=== PATIENT | female | born 1960 | race African-American/Black ===

== ENCOUNTER 2019-08-23 16:33 | Inpatient (IN) | payer OTHER ==
[~2019-08-23] VITALS: Ht 165.1 cm; Wt 78.5 kg
[2019-08-23 16:35] VITALS: BP 115/74
[2019-08-23] MEDS ORDERED: TRAMADOL 50 MG50 MG PO ×2 (16:39→19:59)
[2019-08-23] MEDS ORDERED: KLONOPIN0.5 MG PO (16:39)
[2019-08-23 17:08] LABS: ABSOLUTE NEUTROPHILS 5.1 thou/uL (1.4-8.2); BASOPHILS 0.5 % (0.0-2.0); EOSINOPHILS 1.2 % (0.0-3.0); HEMATOCRIT 40.1 % (37.0-47.0); LYMPHOCYTES 24.6 % (24.0-44.0); MCH 32.9 pg (26.0-34.0); MCHC 32.4 g/dL (28.0-37.0); MCV 101.6 fL (80.0-100.0); MONOCYTES 5.2 % (1.0-8.0); PLATELET COUNT 217 thou/uL (150-400); POLYS 68.5 % (36.0-66.0); RBC 3.95 mil/uL (4.20-5.00); RDW 14.3 % (10.5-14.5); WBC 7.5 thou/uL (4.0-11.0)
[2019-08-23 17:13] LABS: ANION GAP 2 mmol/L (7-16); BUN 10 mg/dL (7-18); CALCIUM 8.8 mg/dL (8.5-10.1); CHLORIDE 105 mmol/L (98-107); CO2 29 mmol/L (21-32); CREATININE 0.7 mg/dL (0.6-1.0); GLUCOSE 91 mg/dL (74-106); POTASSIUM 4.7 mmol/L (3.5-5.1); SODIUM 136 mmol/L (136-145)
[2019-08-23 17:23] LABS: ALBUMIN 3.3 g/dL (3.4-5.0); LIPASE 56 U/L (73-393); SGOT 31 U/L (15-37); SGPT 28 U/L (30-65); TOTAL BILIRUBIN 0.3 mg/dL (<0.1-1.0); TOTAL PROTEIN 6.8 g/dL (6.4-8.2); TROPONIN-I <0.06 ng/mL (<0.06)
[2019-08-23 17:43] LABS: URINE BILIRUBIN NEGATIVE (Negative); URINE BLOOD NEGATIVE (Negative); URINE CLARITY CLEAR; URINE COLOR YELLOW; URINE GLUCOSE-RANDOM* NEGATIVE (Negative); URINE KETONES NEGATIVE (Negative); URINE LEUKOCYTES-REFLEX NEGATIVE (Negative); URINE NITRITE-REFLEX NEGATIVE (Negative); URINE PROTEIN (DIPSTICK) NEGATIVE (Negative); URINE SPECIFIC GRAVITY 1.025 (1.005-1.035); URINE UROBILINOGEN 0.2 E.U./dl (0.2-1.0)
[2019-08-23 17:58] LABS: AMP/METHAMP Negative (Negative); BARBITURATES POSITIVE (Negative); METHADONE Negative (Negative); OPIATES Negative (Negative); PCP Negative (Negative)
[2019-08-23 18:12] LABS: BENZODIAZEPINES POSITIVE (Negative); COCAINE Negative (Negative)
[2019-08-23 18:26] LABS: MAGNESIUM 2.2 mg/dL (1.8-2.4)
[2019-08-23] MEDS ORDERED: CALCIUM CARBON500 MG PO (19:32)
[2019-08-23] MEDS ORDERED: PROAIR HFA8.5 GM INH (19:32)
[2019-08-23] MEDS ORDERED: LIPITOR80 MG PO (19:33)
[2019-08-23] MEDS ORDERED: PLAVIX 75 MG TA75 MG PO (19:34)
[2019-08-23] MEDS ORDERED: OYSTER SHELL 51 EAC1 PO (19:34)
[2019-08-23] MEDS ORDERED: VOLTAREN GEL 1100 GM TOP (19:34)
[2019-08-23] MEDS ORDERED: ZETIA10 MG PO (19:35)
[2019-08-23] MEDS ORDERED: EPIPEN0.3 MG/0.1 IM (19:35)
[2019-08-23] MEDS ORDERED: FLONASE 0.05%50 MCG NASAL (19:35)
[2019-08-23] MEDS ORDERED: NEURONTIN300 MG PO (19:36)
[2019-08-23] MEDS ORDERED: HYDROCORTISONE120 M1 TOP (19:37)
[2019-08-23] MEDS ORDERED: LATANOPROST 0.2.5 ML OPHTHALMIC (19:38)
[2019-08-23] MEDS ORDERED: EVZIO2 MG/0.4 M IV PUSH (19:46)
[2019-08-23] MEDS ORDERED: CORTISPORIN OTI10 ML OTIC (19:47)
[2019-08-23] MEDS ORDERED: NORTRIPTYLINE H10 M1 PO (19:49)
[2019-08-23] MEDS ORDERED: ZOFRAN8 MG PO (19:49)
[2019-08-23] MEDS ORDERED: NITROSTAT0.4 M1 SUBLING (19:49)
[2019-08-23] MEDS ORDERED: RAYOS5 MG PO (19:50)
[2019-08-23] MEDS ORDERED: MIRALAX119 GM PO (19:50)
[2019-08-23] MEDS ORDERED: PROTONIX40 M2 PO (19:50)
[2019-08-23] MEDS ORDERED: MYSOLINE50 MG PO (19:57)
[2019-08-23] MEDS ORDERED: PROPRANOLOL 1010 M1 PO (19:58)
[2019-08-23] MEDS ORDERED: SENEXON-S 50-81 EACH PO (19:58)
[2019-08-23] MEDS ORDERED: SULFACETAMIDE 115 M1 OTIC (19:59)
[2019-08-23] MEDS ORDERED: VENLAFAXINE HCL75 M1 PO (20:00)
[2019-08-23] MEDS ORDERED: VALACYCLOVIR1000 MG PO (20:00)
[2019-08-23 20:28] VITALS: BP 111/68
[2019-08-23 20:50] VITALS: BP 111/68
[2019-08-23 21:14] VITALS: BP 122/70
[2019-08-24] VITALS (7 sets, daily range): BP systolic 107–135; BP diastolic 64–82
--- NOTE | 2019-08-24 04:45 | NUR ---
PT ARRIVED ON THE UNIT AROUND 2109, PT ALERT AND ORIENTED TO PERSON, AN HR LATER PT IS MORE ORIENTED AND CAN ANSWER ADMISSION QUESTIONS, VITALS ARE STABLE SR ON THE MONITOR, MAIN CONCERN IS THE NEW ONSET OF THE RIGHT SIDED WEAKNESS, SEIZURE PRECAUTIONS MAINTAINED, RESTED WELL THROUGHOUT THE NIGHT, WILL CONTINUE TO MONITOR
[2019-08-24 12:22] LABS: CHOLESTEROL 254 mg/dL (<200); HDL CHOLESTEROL 109 mg/dL (>40); LDL CHOLESTEROL 133 mg/dL (<100); TC:HDL 2.3 Ratio (Not establshd); TRIGLYCERIDE 64 mg/dL (<150); VLDL 13 mg/dL (<40)
--- NOTE | 2019-08-24 13:06 | EKG ---
[place] [address] [facility] [place] [address] ELECTROCARDIOGRAM REPORT Name: SHAHEEN RODAS Room #: 216-P ADM IN M.R.#: [id number] Admission: 08/23/19 Attend Phys: Woodrow Izaguirre Discharge: Date of : 60 Report #: [id number] THIS REPORT FOR: //name// [facility] ED Test Date: 2019-08-23 Test Time: 17:09:43 Pat Name: SHAHEEN RODAS Department: Room: 216 Gender: F Chief Of Production: shelton : 1960 Requested By: Osiris Alex Order Number: [id number] MD: Javi Ashley Measurements Intervals [place] Rate: 82 P: 54 [place]: 125 QRS: -14 QRSD: 86 T: 115 QT: 388 QTc: 453 Interpretive Statements Sinus rhythm Abnormal R-wave progression, early transition Left ventricular hypertrophy Nonspecific T abnrm, anterolateral leads No previous ECG available for comparison Electronically Signed On 08-24-2019 13:05:44 MANAGER RETENTION by Javi Ashley [email or web address] <ELECTRONICALLY SIGNED> By: Javi Ashley MD, [facility] 08/24/19 1305 08 08 Javi Ashley MD, FAC /EPI
--- NOTE | 2019-08-24 14:56 | NUR ---
Case opened to follow for dc planning. Carbon Setter visited with the pt at bedside. Her voice is weak but she is able to answer questions and sit up eob independently. She reports that she is disabled and lives in an apt. Her dtr stay with her. She was recieving home health services through [facility] prior to admission and would like to use them again at al. She uses a cane for gait but has a rwalker if needed. She has three steps to enter her apt. She has complex medical history including lupus,s/p cabg,chf,stroke and was admitted with AMS and seizure. She normally goes to [facility] for all of her care. PT/OT have been ordered. Call placed to [facility] to advise of her admission. They can accept her for readmission at al. Their oncall nurse will need to be notified and dc summary, instructions, h/p, and facesheet faxed to them. [facility] HH: [phone], fax [phone]
--- NOTE | 2019-08-24 18:09 | NUR ---
ASSUMED CARE 0700, ALERT X4, ESSENTIAL TREMMORS, NSR ON TELE. LARGE BM TODAY, ASSIST X1 TO COMMODE, ENSURE WITH MEALS, NAUSEA AND VOMITING X1, NOTIFIED PHYSICAIN NO NEW ORDERS AT THIS TIME. SEIZURE AND FALL PRECAUTIONS IN PLACE. CALL LIGHT IN REACH.
[2019-08-25 00:06] LABS: GLYCOHEMOGLOBIN (HGB A1C) 5.3 % (4.8-5.6)
[2019-08-25 04:18] VITALS: BP 121/71
--- NOTE | 2019-08-25 05:25 | NUR ---
ASSUMED CARE AT 1900. PT C/O ABD PAIN AFTER EATING DINNER; STATED SHE TAKES TRAMDOL WITH HER MEALS. OBTAINED ORDER FOR TRAMADOL, BUT PT DID NOT REQUEST ANY PAIN MEDICINE LATER. ABOUT 2300, PT C/O NAUSEA AND WAS GIVEN ZOFRAN FOR RELIEF. DENIED SOB. ASSISTED PT TO BS, WAS WEAK/UNSTEADY AND STRUGGLED TO STAND UP STRAIGHT FOR TRANSFER. HAS BEEN SR IN 60-70'S OVERNIGHT. NO OTHER CONCERNS, WILL CONTINUE TO MONITOR.
--- NOTE | 2019-08-25 06:43 | NUR ---
PT CALLED OUT AT 0540 ASKING FOR PAIN MEDS FOR HER EAR/HEAD. WENT IN ROOM AT 0556, WITNESSED PT HAVING SEIZURE-LIKE ACTIVITY: ENTIRE BODY STIFF, NOT RESPONDING TO VERBAL COMMANDS OR TOUCH, EYES CLENCHED CLOSED, MOUTH AND EYES CLENCHED. STARTED TO HAVE SOME DROOL AND GURGLING IN BACK OF THROAT. TURNED PT ON SIDE, SUCTIONED SOME DROOL. CALLED ARTICULATION OFFICER CARMEN, OBTAINED STAT ORDER FOR 2 MG ATIVAN AND GAVE AT 0604; PT CONTINUED WITH SAME SYMPTOMS. CENTRAL OFFICE OPERATOR SUPERVISOR CALLED. PT PLACED ON 2L NC O2. BLOOD SUGAR 97, VS STABLE. BODY RELAXED SLIGHTLY, PT TRIED TO OPEN EYES BUT JUST RAPID FLICKERING AND UNABLE TO SEE PUPILS, VERY SLIGHTLY TRIED TO MANAGER ROUTE NURSE'S HAND WHEN ASKED, BUT STILL VERY STIFF AND TREMORING. NOTIFIED DR. LONDON AT 0615; OBTAINED ORDER FOR EEG THIS AM. PT NOW APPEARS TO BE SLEEPING BUT HAS LIMITED RESPONSE TO STIMULI. WILL CONTINUE TO MONITOR.
[2019-08-25 08:04] VITALS: BP 104/62
--- NOTE | 2019-08-25 08:16 | NUR ---
REC REPORT ON PT, T WENT THROUGH A BOUT OF SEIZURE LIKE ACTIVITY, COULDN'T PEN EYES PER REPORT. ATIVAN GIVEN AND AN [place] CALLED FOR, NO TECH, SO NEUROTECH WAS CALLED AND VML PER NIGHT STAFF. STAFF TECHNOLOGIST CALLING AGAIN. DR. LONDON NOTIFIED AND THIS IS ORDER, AT THIS TIME. PT IS A&0X4, TALKS VERY SOFT SPOKEN, UP W/SBA AND WALKER/GAIT TO BSC. WEAK REFUELING RAMP SUPERVISOR, MODERATE STRENGTH FEET, SEE SEPARATE INTERVENTIONS FOR ASSESESMENTS, CARDIAC MONITORED. PT STATES SHE HAS A PHYSICIAN AT THAT WILL CHECK HER FOR EPILEPSY. PT KNOWS HOW TO USE CALL LIGHT, SPEAKS SLOWLY, CAN AMB USUALLY W/CANE/WALKER AT HOME. VERY WEAK HERE YET MERELY SBA. ON 02 SATTING 100%, TITRATED AND REMOVED, MONITORING. REMINDED HER ON EFFECTIVE DEEP BREATHING AND SHE DOES RETURN DEMO, WEAKLY
[2019-08-25 12:19] LABS: ABSOLUTE NEUTROPHILS 5.2 thou/uL (1.4-8.2); BASOPHILS 0.4 % (0.0-2.0); EOSINOPHILS 1.7 % (0.0-3.0); HEMOGLOBIN 13.6 gm/dL (12.0-15.0); LYMPHOCYTES 16.4 % (24.0-44.0); MCH 32.7 pg (26.0-34.0); MCHC 32.5 g/dL (28.0-37.0); MCV 100.5 fL (80.0-100.0); PLATELET COUNT 215 thou/uL (150-400); POLYS 76.5 % (36.0-66.0); RBC 4.17 mil/uL (4.20-5.00); WBC 6.8 thou/uL (4.0-11.0)
[2019-08-25 12:35] LABS: ALBUMIN 3.3 g/dL (3.4-5.0); CALCIUM 9.2 mg/dL (8.5-10.1); CREATININE 0.7 mg/dL (0.6-1.0); POTASSIUM 3.9 mmol/L (3.5-5.1); TOTAL BILIRUBIN 0.3 mg/dL (<0.1-1.0); TOTAL PROTEIN 6.9 g/dL (6.4-8.2)
[2019-08-25 13:07] VITALS: BP 103/75
[2019-08-25 20:59] VITALS: BP 138/78
--- NOTE | 2019-08-26 04:56 | NUR ---
ASSUMED PT CARE AT 1900. VSS. PT A&OX4. SEIZURE PRECAUTIONS STIL IN PLACE. COMPLAINED OF L SHOULDER PAIN, TRAMADOL GIVEN PER OCT WAS ICE BAG TO APPLY TO THE AFFECTED AREA. PT RESTED WELL ALL NOC. WANTS A SHOWER BEFORE TRANSFERING OUT TODAY. PT IS STABLE, SR ON THE MONITOR, WILL CONTINUE TO MONITOR PER POC.
[2019-08-26 05:00] LABS: CALCIUM 9.4 mg/dL (8.5-10.1); CREATININE 0.7 mg/dL (0.6-1.0); MAGNESIUM 2.2 mg/dL (1.8-2.4); PHOSPHORUS 3.9 mg/dL (2.5-4.9); POTASSIUM 3.8 mmol/L (3.5-5.1)
[2019-08-26 05:07] LABS: ABSOLUTE NEUTROPHILS 7.3 thou/uL (1.4-8.2); BASOPHILS 0.1 % (0.0-2.0); HEMATOCRIT 40.1 % (37.0-47.0); HEMOGLOBIN 13.2 gm/dL (12.0-15.0); MCH 33.1 pg (26.0-34.0); MCV 100.2 fL (80.0-100.0); MONOCYTES 2.2 % (1.0-8.0); PLATELET COUNT 214 thou/uL (150-400); POLYS 85.7 % (36.0-66.0); RDW 13.8 % (10.5-14.5); WBC 8.5 thou/uL (4.0-11.0)
[2019-08-26 05:41] VITALS: BP 146/123
--- NOTE | 2019-08-26 05:42 | NUR ---
PT HAD A SEIZURE ACTIVITY THIS AM AT 0507, WHICH LASTED FOR 23 MINUTES. OTIS MONTSE NOTIFIED, 2MG OF ATIVAN RX AND GIVEN. NEUROLOGIST INFORMED, LUCI ORDERED ADD GIVEN. WILL CONTIUE TO CLOSELY MONITOR
--- NOTE | 2019-08-26 08:07 | NUR ---
ASSUMED CARE OF PT APPROX 0715, REPORT OF SEIZURE IN THE 0500 HOUR, ATIVAN AND KEPPRA GIVEN, PT SAID HELLO AND WENT BACK TO SELEP, COVERED W/BLANKET FROM WARMER AND SHUT OFF LIGHTS AND LET HER KNOW WE'D VISIT MORE LATER. CHICHI FROM CALLED TO ASK FOR DOCUMENTATION PROCESS OF ACCEPTING PT IS NOW BEGINNING. LET CORPORATE PARALEGAL SEE LIST AND TO CALL RADIOLOGY FOR UPLOADING OF ANY IMAGES. SEE SEPARATE INTERVENTIONS FOR INDIVIDUAL ASSESSMENTS. ALSO NOTED >DBP FROM EARLIER SHIFT. WILL CONTINUE TO MONITOR
[2019-08-26 08:30] VITALS: BP 124/66
[2019-08-26 11:19] VITALS: BP 109/65
--- NOTE | 2019-08-26 11:36 | NUR ---
FELLOW NURSE LET ME KNOW [facility] CALLED FOR REPORT ON USE, ETC. I RETURNED CALL AND CHICHI STATED THEY ARE NOT ACCEPTING PT FOR THESE REASONS: SHE CAN COME IN AN OUT PATIENT, THEY CANNOT DO ANYTHING DIFFERENT THAN WHAT WE ARE DOING, AND PHYSICIAN/BED CAPACITY DOESN'T ALLOW IT AT THIS TIME. LET CHARGE AND HOUSE SUPV KNOW WELL PT. CHICHI STATES HE'S BEEN IN COMM W/DR. TAYLOR.
--- NOTE | 2019-08-26 16:19 | NUR ---
placed call for allergic reaction possibly from cortrosyn given earlier. pt itching, red areas on body, last 15 minutes. will await orders.
[2019-08-26 16:50] VITALS: BP 111/68
[2019-08-26 20:07] VITALS: BP 115/62
[2019-08-27 04:02] VITALS: BP 138/73
[2019-08-27 08:00] VITALS: BP 125/79
--- NOTE | 2019-08-27 09:10 | HC ---
[facility] [place] [address] CONSULTATION Name: SHAHEEN RODAS Room #: 216-P [facility] IN M.R.#: [id number] Admission: 08/23/19 Attend Phys: Woodrow Izaguirre Discharge: Date of : 60 Report #: [id number] THIS REPORT FOR: //name// CC: JOSÉ MIGUEL physician/PCP Woodrow Izaguirre DATE OF SERVICE: 08/26/2019 CONSULTING PHYSICIAN: Dr. Nuno. REASON FOR CONSULTATION: Hypoglycemia. HISTORY OF PRESENT ILLNESS: This is a 59-year-old female patient whose medical background is rather complex and is noted for multiple medical issues including longstanding lupus syndrome with chronic steroid therapy since the , seizure activity disorder, chronic severe gastroparesis, requiring the placement of feeding tube in the past, coronary artery disease, status post coronary artery bypass graft in 2005, in addition to a CVA with residual left-sided weakness. The patient presented to the ER on the day of admission following her daughter calling EMS after she had witnessed what appeared to be seizure-like activity. On the arrival of EMS, the patient's blood glucose was reportedly at 70 mg/dL. The patient was brought in and she was initially not very communicative, lethargic, but then that resolved rather significantly. When asked about her glycemic history, the patient notes that she has a vague recollection of being told that she was a prediabetic in the past, but she has never been diagnosed with full blown type 2 diabetes mellitus, she has never received therapy with antidiabetic agents. Also, the patient does not give a specific description of episodic occurrences of hypoglycemia in the past. She certainly has been intermittently dizzy, lightheaded and probably had alterations in consciousness in the setting of her seizure activity as well. The patient has longstanding lupus and is on steroid therapy since 1987. She is currently on a chronic dose of prednisone 5 mg daily. REVIEW OF SYSTEMS: CONSTITUTIONAL: Fatigue, tiredness, no fever or chills, has had a slight weight loss. HEENT: Negative for sinus pain, sinus pressure, ear drainage. PULMONARY: Occasional shortness of breath and cough. No hemoptysis. CARDIAC: Noted for lightheadedness, dizziness, possible syncope, occasional intermittent chest pain, palpitations, dyspnea on exertion. GASTROINTESTINAL: Severe baseline gastroparesis, has had to use a feeding tube in the past, but this has been removed months ago. She has frequent issues with [facility] [address] [place] [address] CONSULTATION Name: SHAHEEN RODAS Room #: 216-P [facility] IN .R.#: [id number] Admission: 08/23/19 Attend Phys: Woodrow Izaguirre Discharge: Date of : 60 Report #: [id number] nausea, vomiting, significant alterations in bowel movement frequency. NEUROLOGY: Lightheadedness, dizziness, seizure activity. Severe frequent headaches, occasional loss of consciousness. PSYCHIATRIC: Depression, anxiety. SKIN: Negative for rash, ulceration or other major abnormalities. Otherwise, review of systems noncontributory other than those mentioned in HPI. PAST MEDICAL HISTORY: 1. Seizure disorder. 2. Cerebrovascular accident with residual left-sided weakness. 3. Coronary artery disease, status post coronary artery bypass graft in 2005. 4. Chronic lupus with chronic steroid therapy. 5. Severe gastroparesis, status post PEG tube placement and then removal. 6. Essential tremors. 7. Chronic pain syndrome. 8. Hyperlipidemia. OUTPATIENT MEDICATIONS: Include Klonopin 0.5 mg p.o. t.i.d., ProAir 2 puffs q 4-6 hours p.r.n. for wheezing, calcium carbonate b.i.d., atorvastatin 80 mg daily, calcium with vitamin D daily, Plavix daily, ezetimibe 10 mg once daily, gabapentin 300 mg t.i.d., hydrocortisone lotion, nortriptyline at bedtime 10 mg, pantoprazole 40 mg b.i.d., prednisone 5 mg daily, Mysoline 50 mg q.i.d., propranolol 10 mg t.i.d., Ultram 50 mg q. 6 hours p.r.n. pain, valacyclovir 1000 mg b.i.d., venlafaxine 75 mg b.i.d. ALLERGIES: THE PATIENT HAS AN EXTENSIVE ALLERGY LIST INCLUDING TO FLAGYL, ACETAMINOPHEN, CEPHALOSPORINS, LYRICA, DEMEROL, PENICILLIN, SULFA, CEPHALEXIN, ERYTHROMYCIN, GENTAMICIN, LEVOFLOXACIN, TETRACYCLINE AND REGADENOSON. FAMILY HISTORY: Noted for multiple medical issues including heart disease, CVAs. Her own mother had lupus. SOCIAL HISTORY: The patient denies the use of tobacco, alcohol or illicit drugs. She follows with a roof painter in [place], [place]. PHYSICAL EXAMINATION: GENERAL: -Iranian female patient who is not in apparent pain or distress. She seems a bit uncomfortable. VITAL SIGNS: Though blood pressure is 124/66 mmHg, heart rate is 66 beats per minute, respirations 16 per minute, temperature 37 degrees. CONSTITUTIONAL: The patient is sitting upright in bed, appears uncomfortable, but not in apparent pain or distress. HEENT: Anicteric sclerae. Intact extraocular motions. NECK: Supple, without JVD, carotid bruits or lymphadenopathy. I do not appreciate thyromegaly. CHEST: Noted for moderate air entry bilaterally with scattered rales and [facility] [address] [facility] [place] [address] CONSULTATION Name: SHAHEEN RODAS Room #: 216-P [facility] IN M.R.#: [id number] Admission: 08/23/19 Attend Phys: Woodrow Izaguirre Discharge: Date of : 60 Report #: [id number] rhonchi. HEART: Regular rate and rhythm without murmurs or gallops. ABDOMEN: Soft, lax. No guarding. Slight discomfort to deep palpation. Active bowel sounds. EXTREMITIES: Lower extremity exam, trace ankle edema. Pedal pulses are appreciated. Sensation to light touch is diminished. NEUROLOGIC: Awake, alert and oriented to time, place and person. The remainder of her examination is noted for left-sided weakness. Diminished sensation over both lower extremities. PSYCH: The patient has a sad outlook, sad affect, but is appropriate and able to answer all my questions effectively. LABORATORY DATA: The patient's blood glucose values were reviewed since her arrival, and on arrival, she was at 86, then 73, then 69 and since then she has mostly been above 100 mg/dL with the exception of one that was at 77 mg/dL. Otherwise, sodium 133, potassium 3.8, chloride 97, CO2 of 28, anion gap of 8, BUN 15, creatinine 0.7, glucose 119. Again, lipase 56, AST 26, total bilirubin 0.3, calcium 9.4, phosphorus 3.9, magnesium 2.2, alkaline phosphatase 35, ALT 30, total protein 6.9, albumin 3.3. EGFR 104. Lactic acid 1.0. Troponin less than 0.06. Total cholesterol 254, triglycerides 64, HDL 109, LDL 133. BNP 123, white blood count 8.5, hemoglobin 13.2, hematocrit 40.1, platelets 214, hemoglobin A1c was 5.3%. ASSESSMENT AND PLAN: 1. Hypoglycemia. Having reviewed the patient's blood glucose data at length and having discussed that outlook with the patient, both current and historically, the patient does not fulfill the necessary triad of a Whipple to diagnose hypoglycemia. Therefore, I really do not believe that this is an active issue for the patient and as such, I would not necessarily pursue further workup in this regard and I would not necessarily maintain for daily blood glucose checks on her going forward. 2. Adrenal insufficiency. As noted above, the patient has been on chronic low dose steroid therapy for lupus for a few decades. My concern in chronic steroid users even at a low dosages like hers is that adrenal insufficiency becomes a true concern. In many cases, patient might continue to do relatively well on regular days whereby their low dose of prednisone or other glucocorticoid manages to cover their basic needs, but they tend to get in trouble when they are subjected to more intensive metabolic stressors like infections, dehydrations and other metabolic challenges. That said, one has to carefully weigh the recommendation of higher maintenance prednisone dose against the potential downsize of excessive steroid use long-term. I would like to proceed to getting an ACTH stimulation test directly, so that we can evaluate the patient's adrenal reserve and whether she is able to lodge a convincing cortisol response to ACTH. If she does and I hope she does, then I will have her continue with her current prednisone regimen. However, if she fails to mount a satisfactory cortisol response, then we need to consider offering the patient [address] [address] CONSULTATION Name: SHAHEEN RODAS Room #: 216-P [facility] IN M.R.#: [id number] Admission: 08/23/19 Attend Phys: Woodrow Izaguirre Discharge: Date of : 60 Report #: [id number] advancement in her prednisone coverage now and mcfp to supplement not only for her rheumatologic disease, but also for adrenal insufficiency. 3. Seizure activity. This has been a concern and the patient is under the followup of Neurology who are actively working up and managing the patient. 4. Hyperlipidemia. The patient is currently on ezetimibe, atorvastatin, she is to continue with the same. 5. Lupus. As noted above, the patient has been fairly stable on low dose prednisone 5 mg daily. This is to continue and I will investigate further. We need to go beyond this dosage for renal coverage purposes as well. I have reviewed the patient's clinical care notes, laboratory data, and other pertinent clinical information for over 35 minutes. I appreciate this consultation by Dr. Nuno. <ELECTRONICALLY SIGNED> By: Khalif Quick MD 08/27/19 0910 1317 1511 Khalif Quick MD /nt
--- NOTE | 2019-08-27 10:14 | EKG ---
[place] [address] [place] [address] ELECTROCARDIOGRAM REPORT Name: SHAHEEN RODAS Room #: 216- ADM IN M.R.#: [id number] Admission: 08/23/19 Attend Phys: Woodrow Izaguirre Discharge: Date of : 60 Report #: [id number] THIS REPORT FOR: //name// [facility] Test Date: 2019-08-26 Test Time: 14:12:31 Pat Name: SHAHEEN RODAS Department: Room: 216 Gender: F Pipe Connector: Rashawn MICHEL : 1960 Requested By: Albina Nuno Order Number: [id number] MD: Javi Ahsley Measurements Intervals [place] Rate: 80 P: 1 [place]: 130 QRS: -13 QRSD: 79 T: 119 QT: 415 QTc: 479 Interpretive Statements Sinus rhythm Left ventricular hypertrophy Nonspecific T abnormalities, lateral leads Compared to ECG 08/23/2019 17:09:43 No significant change was found Electronically Signed On 08-27-2019 10:14:11 BUSINESS OWNER/ENGINEER by Javi Ashley [email or web address] <ELECTRONICALLY SIGNED> By: Javi Ashley MD, [facility] 08/27/19 1014 1412 141 Javi Ashley MD, [facility] /EPI
--- NOTE | 2019-08-27 10:57 | 2DMMODE ---
[facility] [address] [place] [address] 2 D/M-MODE ECHOCARDIOGRAM Name: SHAHEEN RODAS Room #: 216-P ADM IN M.R.#: [id number] Admission: 08/23/19 Attend Phys: Woodrow Conway Discharge: Date of : 60 Report #: [id number] THIS REPORT FOR: //name// APPROVED REPORT Study performed: 08/27/2019 10:22:55 EXAM: Comprehensive 2D, Doppler, and color-flow Echocardiogram Patient Location: Bedside Room #: [facility] Status: routine BSA: 1.90 HR: 85 bpm BP: 138/73 mmHg Rhythm: NSR Other Information Study Quality: Adequate Indications Congestive Heart Failure CAD Chest Pain CABG 2D Dimensions RVDd: 25.52 mm IVSd: 9.16 (7-11mm) LVOT Diam: 19.65 (18-24mm) LVDd: 37.49 mm PWd: 9.16 (7-11mm) Ascending Ao: 25.46 (22-36mm) LVDs: 26.51 (25-40mm) Aortic Root: 28.41 mm IVC: 13.00 mm Volumes Left Atrial Volume (Systole) Single Plane 4CH: 36.27 mL Single Plane 2CH: 43.03 mL LA ESV Index: 23.00 mL/m2 Aortic Valve AoV Peak Colt.: 1.16 m/s AO Peak Gr.: 5.39 mmHg LVOT Max P.46 mmHg LVOT Max V: 1.06 m/s GIGI Vmax: 2.76 cm2 Mitral Valve [facility] [address] [place] [address] 2 D/M-MODE ECHOCARDIOGRAM Name: SHAHEEN RODAS Room #: 216-P [facility] IN ..#: [id number] Admission: 08/23/19 Attend Phys: Woodrow Conway Discharge: Date of : 60 Report #: [id number] E/A Ratio: 0.8 MV Decel. Time: 270.31 ms MV E Max Colt.: 0.64 m/s MV A Colt.: 0.77 m/s MV PHT: 78.39 ms IVRT: 64.59 ms Pulmonary Valve PV Peak Colt.: 0.81 m/s PV Peak Gr.: 2.65 mmHg Pulmonary Vein P Vein S: 0.65 m/s P Vein A: 0.25 m/s P Vein D: 0.40 m/s P Vein A Dur.: 106.1 msec P Vein S/D Ratio: 1.63 Tricuspid Valve TR Peak Colt.: 2.59 m/s TR Peak Gr.: 26.92 mmHg PA Pressure: 32.00 mmHg Left Ventricle The left ventricle is normal size. There is normal LV segmental wall motion. There is normal left ventricular wall thickness. The left ventricular systolic function is normal. The left ventricular ejection fraction is within the normal range. LVEF is 55-60%. Grade I - abnormal relaxation pattern. Right Ventricle The right ventricle is normal size. The right ventricular systolic function is normal. Atria The left atrium size is normal. The right atrium size is normal. Aortic Valve The aortic valve is normal in structure. No aortic regurgitation is present. There is no aortic valvular stenosis. Mitral Valve The mitral valve is normal in structure. There is no mitral valve regurgitation noted. No evidence of mitral valve stenosis. Tricuspid Valve The tricuspid valve is normal in structure. There is trace to mild tricuspid regurgitation. Estimated PAP 32 mmHg. There is mild [facility] [address] [place] [address] 2 D/M-MODE ECHOCARDIOGRAM Name: SHAHEEN RODAS Room #: 216-P ADM IN M.R.#: [id number] Admission: 08/23/19 Attend Phys: Woodrow Conway Discharge: Date of : 60 Report #: [id number] pulmonary hypertension. Pulmonic Valve The pulmonary valve is normal in structure. Mild pulmonic regurgitation. Great Vessels The aortic root is normal in size. IVC is normal in size and collapses >50% with inspiration. Pericardium There is no pericardial effusion. <Conclusion> The left ventricle is normal size. There is normal left ventricular wall thickness. The left ventricular systolic function is normal. Grade I - abnormal relaxation pattern. The right ventricle is normal size. The left atrium size is normal. The aortic valve is normal in structure. There is no mitral valve regurgitation noted. There is trace to mild tricuspid regurgitation. Estimated PAP 32 mmHg. <ELECTRONICALLY SIGNED> By: Jarek Marte MD 08/27/19 1057 56 56 Jarek Marte MD /INF
--- NOTE | 2019-08-27 11:06 | HC ---
[facility] [place] [address] CONSULTATION Name: SHAHEEN RODAS Room #: 216-P ADM IN M.R.#: [id number] Admission: 08/23/19 Attend Phys: Woodrow Izaguirre Discharge: Date of : 60 Report #: [id number] THIS REPORT FOR: //name// CC: JOSÉ MIGUEL physician/PCP Woodrow Izaguirre REASON FOR CONSULTATION: Coronary artery disease. HISTORY OF PRESENT ILLNESS: The patient is a 59-year-old woman with a complex history including coronary artery disease with 6-vessel bypass surgery in [place], [place] in 2005. She underwent coronary angiography in [place], [place] in 2013. No intervention was obtained, although she was told at that time that she had small vessel coronary artery disease and medical therapy was the only thing that could be offered. She now presents with recurrent seizures. Plans are to transfer her to later today. She has described an episode of chest tightness occurring after each of her seizures. At other times generally, she has been doing well without pain, pressure, or ischemic type symptoms. She denies heart failure symptoms including orthopnea, paroxysmal nocturnal dyspnea, or lower extremity edema. No history of near-syncope or syncope. CT with chest protocol demonstrates mild carotid plaquing and otherwise normal CT perfusion of the head. MRI similarly is essentially unremarkable. Serial cardiac enzymes have been normal. EKGs have demonstrated minor nonspecific changes. She is currently pain free. ALLERGIES: Include LEXISCAN, which causes seizures, ACETAMINOPHEN, ASPIRIN, CEPHALOSPORINS, FLAGYL, LYRICA, NEURONTIN. Medicine intolerances include or possible allergies include TEGRETOL, CODEINE, PENICILLIN, TETRACYCLINE, AMITRIPTYLINE, BENTYL, DEMEROL, ERYTHROMYCIN, GENTAMYCIN, ISOSORBIDE, KEFLEX, LEVAQUIN, NONSTEROIDAL ANTI-INFLAMMATORY MEDICINES, PHENERGAN, PROMETHAZINE, RANOLAZINE, REGLAN, REQUIP, and SULFA. MEDICATIONS: Include albuterol, atorvastatin 80 mg daily, Zetia 10 mg daily, Plavix 75 mg daily, clonazepam, gabapentin 300 mg 3 times a day, sublingual nitroglycerin, nortriptyline, ondansetron, Protonix 40 mg twice daily, prednisone 5 mg daily, primidone, propranolol 10 mg 3 times a day, Valtrex, and Effexor 75 mg twice daily. PAST MEDICAL HISTORY: Medical records have been reviewed and include a history of lupus, coronary bypass grafting, dyslipidemia, severe gastroparesis, prior PEG tube placement, hysterectomy, and essential tremors. SOCIAL HISTORY: She is a nonsmoker. FAMILY HISTORY: Notable for multiple siblings with heart disease. REVIEW OF SYSTEMS: All systems negative except as that noted above. [facility] [address] [place] [address] CONSULTATION Name: SHAHEEN RODAS Room #: 216-P [facility] IN M.R.#: [id number] Admission: 08/23/19 Attend Phys: Woodrow Izaguirre Discharge: Date of : 60 Report #: [id number] PHYSICAL EXAMINATION: GENERAL: This is a pleasant woman who is alert and in no distress. VITAL SIGNS: Blood pressure is 124/66, heart rate is 66 and regular. She is afebrile. HEENT: There are neither xanthelasma, subcutaneous xanthomata, oral mucosal or digital cyanosis, or kyphoscoliosis present. CHEST: Clear to auscultation and percussion. CARDIAC: Regular rate and rhythm with normal S1, S2. No murmurs or rubs. ABDOMEN: Soft and nontender. EXTREMITIES: Without cyanosis, clubbing, or edema. Radial pulses are 2+. NEUROLOGIC: She is alert with a nonfocal exam. LABORATORY DATA: Sodium 133, potassium 3.8, creatinine 0.7. Cholesterol 254, LDL 133. White count 8.5, hemoglobin 13, hematocrit 40, platelet count 214. Hemoglobin A1c 5.3. Chest x-ray is normal. EKG, sinus rhythm with nonspecific T-wave abnormality. IMPRESSION: 1. Recurrent seizures. 2. Chest pain in combination with seizures. 3. Coronary artery disease with remote 6-vessel bypass (2005), angiogram in [place], [place] demonstrating small vessel nikolai disease with medical therapy recommended. 4. Dyslipidemia. 5. Lupus. 6. Multiple medication intolerances and/or allergies including IMDUR, RANEXA, ASPIRIN and LEXISCAN to name a few. 7. History of nonischemic stress study within the past year. RECOMMENDATIONS: 1. Continued medical therapy for coronary artery disease. 2. All of her recent cardiology care has been at including an appointment with her mid wife 10 days ago. Records have been requested and remain pending. She does report a nonischemic stress study within the past year. 3. Chest symptoms occurred after seizures. Continued aggressive medical therapy for coronary artery disease is recommended with primary treatment directed toward suppression of her recurrent and somewhat refractory seizures. I have discussed these issues with the patient in detail. I have encouraged compliance with her medicines as well as close followup with her primary mid wife at . <ELECTRONICALLY SIGNED> By: Javi Ashley MD, [facility] 08/27/19 1106 1249 1428 Javi Ashley MD, FACC /nt
[2019-08-27 12:43] VITALS: BP 123/74
--- NOTE | 2019-08-27 14:05 | NUR ---
Chart reviewed spoke with tranfer center Ruby who reports the ttransfer intiation called into yesterday. They rec over 50 pages of transfer information. Ruby reports phys reviewed information and no need to transfer per can f/u with epiletalogist on outpatient basis. Updated Dr Gonzalez who wanted to assure aware need for continuous EEG. Sp with Derek at transfer who reports Dr Chapa reviewed the information and EEG and again no need to transfer. Ruby reports they were aware of need for CONTINOUS EEG. Dr Gonzalez requested RN sp with neurology to determine if needed cont EEG at this time. RN to discuss with Dr Bhagat on rounds.
[2019-08-27 17:00] VITALS: BP 107/67
[2019-08-27 19:50] VITALS: BP 117/62
--- NOTE | 2019-08-27 19:50 | NUR ---
ORIENTED X4, VSS, FROM HOME, ECHO COMPLETED TODAY. WILL FOLLOW UP WITH [facility] FOR OUTPATIENT EEG. SEIZURE PRECAUTIONS IN PLACE. CALLS FOR ASSISTANCE. LIKELY DC H0ME TOMORROW.
[2019-08-28 04:51] VITALS: BP 134/80
--- NOTE | 2019-08-28 05:18 | NUR ---
ASSUMED PT CARE AT 1900. PT IS ALERT AND ORIENTED WITH NO SIGN OF DISTRESS NOTED IN PT. PT IS IN BED RESTING COMFORTABLY. FALL PRECAUTION IN PLACE. DENIES ANY PAIN. VERBALIZES NAUSEA. NAUSEA MED ADMINISTERED. ASSESSMENT COMPLETED AND DOCUMENTED. SCHEDULED MEDS ADMINISTERED TO PT. PT TOLERATED PO INTAKE. CONTINUE TO MONITOR PATIENT. DENIES ANY FURTHER NEEDS AT THIS TIME.
[2019-08-28 08:00] VITALS: BP 136/89
--- NOTE | 2019-08-28 09:28 | HC ---
[facility] [address] [place] [address] CONSULTATION Name: SHAHEEN RODAS Room #: 216-P ADM IN M.R.#: [id number] Admission: 08/23/19 Attend Phys: Woodrow Izaguirre Discharge: Date of : 60 Report #: [id number] THIS REPORT FOR: //name// CC: JOSÉ MIGUEL physician/PCP Woodrow Izaguirre DATE OF SERVICE: 08/23/2019 HISTORY OF PRESENT ILLNESS: This is a 59-year-old female patient who was seen by me in Emergency Room after emergency provider, Osiris Alex, has called me about this patient. This patient had a pretty unusual history and pretty unusual examination later on. I talked to the Emergency Room provider on the phone and then later on in person. As I understand, the patient's daughter was sleeping around 4:00. She woke up because the patient's mother was banging and having what looks like tremors. So the daughter noticed the deficit at 4:00. How long it was present before the daughter noticed it is not clear because she was sleeping and the patient cannot provide any history in that regard. Therefore, time of onset is not 4:00 because that is the time the deficit was noticed by the daughter and the time of onset is unknown because we do not know how long she was having these symptoms because she cannot talk before the daughter noticed these symptoms at 4:00 p.m. Symptoms are not clear either. She was apparently shaking. She was unresponsive and had the right-sided weakness. She does have speech problem, but she is able to understand everything. She is able to talk, but her talk is so soft that only the daughter can understand it. REVIEW OF SYSTEMS: Indicate that this patient has tremor. She has a history of seizure. She was in [facility] for what was considered as a clonazepam withdrawal seizure. She has a tube put in, which is because of gastroparesis. She indicated that she does not have diabetes. She has been diagnosed with essential tremor. She has a longstanding history of anxiety. She indicated that she has not been admitted to the psychiatric floor with that anxiety. The patient also indicates that she has lupus. She indicates some people tell her that she has lupus, other people think she does not have lupus. That history is also pretty unusual. This was a relevant 14-point review of system. PAST MEDICAL HISTORY: Positive for seizure. I do not have any records in that regard. SOCIAL HISTORY: The patient has a daughter. She is the one who provided history. The best I understand she does not drink any alcohol. PHYSICAL EXAMINATION: The patient's examination was pretty limited. She is sleepy, she wakes up. When she wakes up, she follow commands, but she talks [facility] [address] [place] [address] CONSULTATION Name: SHAHEEN RODAS Room #: 216-P [facility] IN M.R.#: [id number] Admission: 08/23/19 Attend Phys: Woodrow Izaguirre Discharge: Date of : 60 Report #: [id number] very softly. Her speech is barely audible, but the daughter is able to tell what she has been talking. This one does not look like typical aphasia or dysarthria the patient has. She just talk very softly. Cranial nerve examination 2-12 was attempted. When she is asked to smile, she does not smile very well, but it switches sides, sometime it is on the right side and sometimes she has trouble on the left side. When she is talking, she moves both sides of the face symmetrically and when she is distracted, she does the same thing. She indicates that she cannot move the right side. When I tried to move it, she does move it but then slowly brings it down indicating that she is weak. I could not carry out a good sensory examination, but reflexes look symmetrical. Cardiac and respiratory examination is unremarkable. Her blood pressure is 122/70, pulse is 73, temperature is 97.4, respiration is 18. LABORATORY DATA: Indicate a normal white count. Her CT scan and CT angiography and perfusion was reviewed and that was unremarkable. IMPRESSION: It is difficult to form in this patient. The patient presents with what she described as seizure and then she has right-sided weakness. Her exam is on the phone and when I saw this patient did not look convincing for a stroke because it is not a very anatomical location and the patient's examination varies from one exam to another exam and when she is distracted or not distracted. I initially wanted to see if she is a TPA candidate or not. Although initially I was given the time of onset at 4:00, but when I talked to the patient more, it looks like 4:00 daughter noticed that, when did this start is not clear. The exam in itself is unusual. I did discuss with them TPA and they did not want it and I did not think she was a typical candidate either because of the above and TPA was not given and instead I asked the nurse practitioner who was seeing this patient in the Emergency Room to order a stat CT angiogram of the head and neck with stroke protocol as well as MRI. I reviewed CT angiogram of the head, neck and perfusion. They are entirely normal. Therefore, the patient is not any thrombectomy candidate either. The history of lupus is not very convincing, but that raised the possibility of lupus in those seizure or stroke. I was checking for that possibility and was looking for MRI, but realized that MRI is not done. The best I can tell, it will be done tomorrow because it was not ordered stat. This patient was not given TPA because the time of onset was not clear, the offer was discussed with the family and the patient and they decided not to have it and she does not look like a candidate for TPA because her symptoms are not very typical for stroke, although stroke cannot be fully excluded. She is not a thrombectomy candidate because she has no thrombus. After examining her repeatedly, I am not certain it is stroke or rather it is a psychological symptom. However, because of the patient's history of lupus, I wanted to get an MRI done, but it was not done, but looks like it will not be done until tomorrow, but I will talk to the nurses again. I was going to give an aspirin [facility] [address] [place] [address] CONSULTATION Name: SHAHEEN RODAS Room #: 216-P ADM IN M.R.#: [id number] Admission: 08/23/19 Attend Phys: Woodrow Izaguirre Discharge: Date of : 60 Report #: [id number] to her. She says she is allergic to ASPIRIN. Thank you very much for this referral and if you have any question, please feel free to contact me. <ELECTRONICALLY SIGNED> By: Giovanni Magallon MD 08/28/19 0928 0021 1 Giovanni Magallon MD /sharyn
[2019-08-28 12:17] VITALS: BP 117/76
--- NOTE | 2019-08-28 14:46 | NUR ---
AAO. SOFT SPOKEN. PERSISTANT NAUSEA, ZOFRAN GIVEN. NEURO HAS SIGNED OFF. DR. ANGEL TO DISCHARGE TO HOME. SR PER TELE. CLOSE TO NURSES' STATION, FALL PRECAUTIONS IN EFFECT. ASSISTED TO BEDSIDE CHAIR MOST OF THE DAY. WILL CONTINUE TO FOLLOW CLOSELY.
[2019-08-28 14:49] VITALS: BP 107/64
[2019-08-28 14:56] VITALS: BP 107/64
--- NOTE | 2019-08-28 15:47 | NUR ---
patient to dc home with Home Health today. Faxed orders and sp with [facility]. Alerted of dc. patient has called her family for transport home.
== END 2019-08-28 17:46 | disposition home health service (06) | DRG 100 ==
LOC: ER 16:33 → EROBS 18:31 → 2N 18:31 → ENTRNSPT 08-28 17:33 → 2N 08-28 17:46
PROVIDERS: Emergency Medicine; Internal Medicine; Nurse Practitioner Acute Care; Nurse Practitioner Family; ADMIT Hospitalist
DX: G40.909 Epilepsy, unspecified, not intractable, without status epilepticus (principal); G92 Toxic encephalopathy; I69.354 Hemiplegia and hemiparesis following cerebral infarction affecting left non-dominant side; E27.40 Unspecified adrenocortical insufficiency; F41.9 Anxiety disorder, unspecified; T42.4X5A Adverse effect of benzodiazepines, initial encounter; T42.3X5A Adverse effect of barbiturates, initial encounter; M32.9 Systemic lupus erythematosus, unspecified; I25.10 Atherosclerotic heart disease of native coronary artery without angina pectoris; E78.5 Hyperlipidemia, unspecified; E16.2 Hypoglycemia, unspecified; K31.84 Gastroparesis; G25.0 Essential tremor; G89.4 Chronic pain syndrome; L53.9 Erythematous condition, unspecified; R07.9 Chest pain, unspecified; Z79.899 Other long term (current) drug therapy; Z95.1 Presence of aortocoronary bypass graft; Z88.2 Allergy status to sulfonamides; Z88.1 Allergy status to other antibiotic agents; Z88.8 Allergy status to other drugs, medicaments and biological substances; Y92.89 Other specified places as the place of occurrence of the external cause
CPT/HCPCS: 10081

== ENCOUNTER 2019-09-26 12:57 | Emergency (ER) | payer OTHER ==
[~2019-09-26] VITALS: Ht 165.1 cm; Wt 79.8 kg
--- NOTE | ~2019-09-26 | EKG ---
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
[~2019-09-26 12:57] MED LIST: CALCIUM CARBON500 MG PO; CORTISPORIN OTI10 ML OTIC; EPIPEN0.3 MG/0.1 IM; EVZIO2 MG/0.4 M IV PUSH; FLONASE 0.05%50 MCG NASAL; HYDROCORTISONE120 M1 TOP; KLONOPIN0.5 MG PO; LATANOPROST 0.2.5 ML OPHTHALMIC; LIPITOR80 MG PO; MIRALAX119 GM PO; MYSOLINE50 MG PO; NEURONTIN300 MG PO; NITROSTAT0.4 M1 SUBLING; NORTRIPTYLINE H10 M1 PO; OYSTER SHELL 51 EAC1 PO; PLAVIX 75 MG TA75 MG PO; PROAIR HFA8.5 GM INH; PROPRANOLOL 1010 M1 PO; PROTONIX40 M2 PO; RAYOS5 MG PO; SENEXON-S 50-81 EACH PO; SULFACETAMIDE 115 M1 OTIC; TRAMADOL 50 MG50 MG PO; VALACYCLOVIR1000 MG PO; VENLAFAXINE HCL75 M1 PO; VOLTAREN GEL 1100 GM TOP; ZETIA10 MG PO; ZOFRAN8 MG PO
[2019-09-26 14:07] LABS: ABSOLUTE NEUTROPHILS 4.4 thou/uL (1.4-8.2); BASOPHILS 0.2 % (0.0-2.0); EOSINOPHILS 1.1 % (0.0-3.0); HEMOGLOBIN 12.8 gm/dL (12.0-15.0); LYMPHOCYTES 23.7 % (24.0-44.0); MCH 33.2 pg (26.0-34.0); MCV 103.6 fL (80.0-100.0); PLATELET COUNT 147 thou/uL (150-400); RBC 3.86 mil/uL (4.20-5.00); RDW 14.7 % (10.5-14.5); WBC 6.3 thou/uL (4.0-11.0)
[2019-09-26 14:27] LABS: CALCIUM 8.1 mg/dL (8.5-10.1); CREATININE 0.7 mg/dL (0.6-1.0)
[2019-09-26 14:28] LABS: POTASSIUM 4.3 mmol/L (3.5-5.1)
[2019-09-26 14:33] LABS: TOTAL BILIRUBIN 0.2 mg/dL (<0.1-1.0); TOTAL PROTEIN 6.2 g/dL (6.4-8.2)
[2019-09-26 18:38] VITALS: BP 160/97
== END 2019-09-26 18:39 | disposition home or self-care (01) ==
LOC: ER 12:57
PROVIDERS: Nurse Practitioner Family
DX: G40.409 Other generalized epilepsy and epileptic syndromes, not intractable, without status epilepticus (principal); E78.5 Hyperlipidemia, unspecified; I25.10 Atherosclerotic heart disease of native coronary artery without angina pectoris; Z88.1 Allergy status to other antibiotic agents; Z88.5 Allergy status to narcotic agent; Z88.0 Allergy status to penicillin; Z88.2 Allergy status to sulfonamides; Z88.8 Allergy status to other drugs, medicaments and biological substances; Z86.73 Personal history of transient ischemic attack (TIA), and cerebral infarction without residual deficits

== ENCOUNTER 2020-01-02 10:09 | Inpatient (IN) | payer OTHER ==
[~2020-01-02] VITALS: Ht 185.6 cm; Wt 76.7 kg
[2020-01-02 10:17] VITALS: BP 154/87
[2020-01-02 10:53] LABS: URINE BILIRUBIN NEGATIVE (Negative); URINE BLOOD 2+ (Negative); URINE COLOR YELLOW; URINE GLUCOSE-RANDOM* NEGATIVE (Negative); URINE KETONES NEGATIVE (Negative); URINE PROTEIN (DIPSTICK) TRACE (Negative); URINE SPECIFIC GRAVITY 1.015 (1.005-1.035); URINE UROBILINOGEN 0.2 E.U./dl (0.2-1.0)
[2020-01-02 10:54] LABS: URINE CLARITY CLOUDY; URINE LEUKOCYTES-REFLEX 3+ (Negative); URINE NITRITE-REFLEX POSITIVE (Negative)
[2020-01-02 11:03] LABS: SQUAMOUS 0-3 Few /LPF (0-3)
[2020-01-02 11:04] LABS: CASTS None Seen /LPF (None Seen); MUCUS >6 Heavy strn/LPF (None Seen)
[2020-01-02 11:05] LABS: TRIPLE PHOSPHATE CRYSTALS 4-10 Moderate /LPF (None Seen)
[2020-01-02 11:06] LABS: BACTERIA-REFLEX >30 Many /HPF (None Seen); URINE RBC 0-2 Rare /HPF (0-2); URINE WBC-REFLEX >25 Many /HPF (0-5)
[2020-01-02 11:11] LABS: AMP/METHAMP Negative (Negative); BARBITURATES POSITIVE (Negative); BENZODIAZEPINES POSITIVE (Negative); COCAINE Negative (Negative); METHADONE Negative (Negative); OPIATES Negative (Negative); PCP Negative (Negative)
[2020-01-02 11:18] LABS: ABSOLUTE NEUTROPHILS 4.6 thou/uL (1.4-8.2); BASOPHILS 0.2 % (0.0-2.0); HEMATOCRIT 38.5 % (37.0-47.0); HEMOGLOBIN 12.6 gm/dL (12.0-15.0); MCH 32.5 pg (26.0-34.0); MCHC 32.7 g/dL (28.0-37.0); MCV 99.2 fL (80.0-100.0); MONOCYTES 4.2 % (1.0-8.0); PLATELET COUNT 210 thou/uL (150-400); POLYS 78.6 % (36.0-66.0); RBC 3.88 mil/uL (4.20-5.00); RDW 13.7 % (10.5-14.5); WBC 5.9 thou/uL (4.0-11.0)
[2020-01-02 11:33] LABS: ANION GAP 7 mmol/L (7-16); BUN 8 mg/dL (7-18); CALCIUM 9.1 mg/dL (8.5-10.1); CHLORIDE 102 mmol/L (98-107); CO2 28 mmol/L (21-32); CREATININE 0.9 mg/dL (0.6-1.0); GLUCOSE 100 mg/dL (74-106); POTASSIUM 3.5 mmol/L (3.5-5.1); SODIUM 137 mmol/L (136-145)
[2020-01-02 11:42] LABS: ALBUMIN 3.3 g/dL (3.4-5.0); MAGNESIUM 1.8 mg/dL (1.8-2.4); PHOSPHORUS 4.3 mg/dL (2.5-4.9); SGOT 22 U/L (15-37); SGPT 16 U/L (30-65); TOTAL BILIRUBIN 0.5 mg/dL (<0.1-1.0); TOTAL PROTEIN 6.8 g/dL (6.4-8.2); TROPONIN-I <0.06 ng/mL (<0.06)
--- NOTE | 2020-01-02 12:12 | NUR ---
Sultana Weaver is patient's daughter that lives in [facility]: [phone]
--- NOTE | 2020-01-02 12:58 | EKG ---
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: DOMINGO : 1960 Requested By: Adiar Caballero Order Number: [id number] MD: Ilia Almonte Measurements Intervals [place] Rate: 85 P: 5 WI: 121 QRS: -15 QRSD: 84 T: 171 QT: 373 QTc: 444 Interpretive Statements Sinus rhythm LVH with secondary repolarization abnormality Compared to ECG 09/26/2019 14:45:12 Left ventricular hypertrophy now present Early repolarization now present Prolonged QT interval no longer present Electronically Signed On 01-02-2020 12:56:55 CDT by Ilia Almonte [email or web address] <ELECTRONICALLY SIGNED> By: Ilia Almonte MD 01/02/20 1256 1054 1054 Ilia Almonte MD /EPI
[2020-01-02] MEDS ORDERED: CALCIUM 600 +1 EAC2 PO (14:01)
[2020-01-02] MEDS ORDERED: NORTRIPTYLINE H10 M1 PO (14:04)
[2020-01-02 17:42] VITALS: BP 144/98
--- NOTE | 2020-01-02 18:23 | NUR ---
PT. ARRIVED AT 1700 THIS AFTERNOON FROM ER. PT. LIVES ALONE AND STATES SHE IS "SEEING THINGS", AND BELIEVES THERE IS BLOOD ALL OVER HER BODY. SHE STATES SHE ALSO HAS PSYCHOSIS, BUT WAS UNSPECIFIC TO THESE. SHE STATES SHE HAS LOST ABOUT 30 LBS OVER THE PAST FEW MONTHS D/T NOT EATING WELL. HER DAUGHTERTRENT LIVES NEAR AND HER # IS [phone]. SHE STATES SHE HAS A HISTORY OF OPEN HEART SURGERY (6 VESSEL) IN 2005, LUPUS, GALLBLADDER SURGERY 2012, SINUS SURGERY 2016,NEEDS SHOULDER (LEFT) REPLACED, HAS GASTROPROESIS, FIBROMYALGIA, IBS AND CVA. SHE WAS COOPERATIVE WITH THE INTERVIEW PROCESS, BUT WHEN THE CONSENTS WERE PRESENTED, SHE STATED SHE WAS NOT READY TO SIGN SOME OF THEM.
[2020-01-02 19:46] VITALS: BP 125/74
[2020-01-02 21:45] VITALS: BP 125/74
--- NOTE | 2020-01-03 03:56 | NUR ---
PATIENT IS A/0X3-4. SHE AMBULATES ON HER OWN. SHE DOES HAVE SOME WEAKNESS AND NERVE PAIN ON LEFT SIDE EXTREMITIES, RESIDUAL FROM FORMER CVA. PATIENT SPEAKS CLEARLY. PLACED MUSCLE RUB ON BILATERAL KNEES AND LEFT SHOULDER. PATIENT DOES HAVE TREMORS IN HER HANDS. MEDS FROM HOME WERE DOCUMENTED AND SENT TO PHARMACY UNTIL SHE GOES HOME. PT TOOK MED WHOLE WITH WATER TONIGHT. PATIENT HAS BEEN PLEASANT AND SLEEPING IN HER BED. BELONGINGS INVENTORIED AND PLACED IN LOCKER. BED IN LOW POSITION. CONTINUING TO MONITOR. ROUTINE ROUNDING TO CHECK ON STATUS AND SAFETY OF PATIENT. DENIES SI/HI/AVH TONIGHT.
[2020-01-03 07:34] VITALS: BP 113/78
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
--- NOTE | 2020-01-03 13:28 | NUR ---
ASSUMED CARE OF THE PT AT 0700. PT IS AMBULATORY. C/O PAIN IN THE BACK, PAIN MEDS GIVEN, SEE EMAR. LUNGS ARE CLEAR AND JAQUAN PULSES ARE STONG. VS ARE NORMAL. PT HAS TREMORS IN BOTH HANDS AND WALKS WITH A LIMP DUE TO WEAKNESS ON L SIDE FROM HX OF CVA. SPOKE WITH SON, MEGHNA, JOVITA , WANTED TO KNOW WHY MOTHER WAS ADMITTED AND HOW SHE IS PROGRESSING. OTHER SON LAKSHMI, , LEFT VM. BED IN LOWEST POSITION. WILL CONTINUE TO MONITOR THE PT.
--- NOTE | 2020-01-03 16:45 | NUR ---
YAQUELIN met with pt who told YAQUELIN that she had a reaction to something that caused her tongue to swell. When she was under the influence of medicine, she apparently was saying weird things about the SEXTON virus and that was misconstrued so she was sent to [facility]. She has 3 children; her two sons Tyler and John are her DPOA's. She lives alone in [facility] in an apartment. She receives services through including psychotherapy. She admitted that she is supposed to see a therapist for her seizure disorder. She struggles with not being able to drive and do regular things. She completed 3 years of college, and likes to complete word puzzles, coloring pages, and word searches. She was pleasant and oriented during this meeting. YAQUELIN team will continue to ofllow pt during her stay on this unit.
[2020-01-03 19:30] VITALS: BP 106/68
--- NOTE | 2020-01-04 03:05 | NUR ---
ASSESSMENT: PT REMAIN ALERT AND ORIENT TIMES THREE. UP WITH STEADY GAIT. C/O OF "RASH" ON ABD, SHOULDERS AND ARM. PT DID HAVE A FEW AREAS OF RED SPOTS THAT WERE NOT OPEN. LOTION WAS APPLIED WITH GOOD RELIEF OF "ITCHING" PER PT. THE AREAS WERE OLD SPOTS WHERE PATCHES WERE APPLIED. VSS, AFEBRILE. PT SLEPT IN THE LOUNGE CHAIR DURING THE NIGHT, STATING THAT THE BED WAS TOO UNCOMFORTABLE. NO S/S OF SEIZURES NOTED THIS SHIFT. DENIED PAIN, SOB AND N/V. TOOK PILLS WHOLE WITHOUT DIFFICULTY. SLOW PROGRESS TOWARDS DC GOALS, WILL CONTINUE TO MONITOR.
[2020-01-04 07:00] VITALS: BP 110/71
--- NOTE | 2020-01-04 09:26 | NUR ---
YAQUELIN received a call from pt's son John who requested a family meeting with YAQUELIN and Dr. Grier in regards to her discharge plan. He believes his mom is not being transparent about what is occuring with her. YAQUELIN scheduled a family meeting for 12pm today. YAQUELIN team will continue to follow pt during her stay on this unit.
--- NOTE | 2020-01-04 14:16 | NUR ---
States she spent most of night in recliner d/t L arm hurting. Pain worse after Tramadol d/t OT/PT tx, improved in afternoon. Alert and orientated X4. States she is here to get help. Much calmer today than interaction when she was signing admission consents. Denies SI/HI. Wanting to talk with Dr. Grier this AM. Ambulates with regular, steady gait. Breath sounds clear t/o. Reg HR auscultated. Color pink with brisk capillary refill and palpable peripheral pulses. Independent with voiding. Active bowel sounds over soft, rounded abdomen. States circular areas where EKG patches were placed are itching, requesting cream, hydrocortisone cream applied in afternoon per order. Limited ROM with L arm. Currently coloring in day room.
[2020-01-04 15:04] VITALS: BP 110/71
[2020-01-04 19:37] VITALS: BP 113/75
--- NOTE | 2020-01-05 05:46 | NUR ---
Assumed care of pt @ 1900. Pt calm et cooperative with pleasant demeanor this shift. Took medications whole without difficulty. Pt c/o small rashes on torso, arms, back of neck, et hands. Call placed to physician circulation sales representative et Benadryl 50mg PO Q8 hours X 24 hours ordered along with Benadryl cream to affected areas Q6 hours PRN. Pt took oral Benadryl without difficulty et showed no signs or symptoms of adverse reaction. Ambulates the halls ad lux with steady gait. Socialized in dayroom until HS. VSWNL. Health assessment with no abnormalities other than previously noted. Denies SI/HI. Currently resting in bed with eyes closed. Will continue to monitor per protocol.
[2020-01-05 09:04] VITALS: BP 103/67
--- NOTE | 2020-01-05 09:10 | NUR ---
0700 ASSUMED CARE OF PATIENT. 0800 PATIENT IN DAYROOM FOR BREAKFAST. PATIENT SITTING WITH OTHERS COMMUNICATING WELL. 0830 PATIENT TAKES MEDICATION WHOLE WITH WATER. C/O PAIN TO LEFT SHOULDER RATING A 6 ON NUMERIC PAIN SCALE. PATIENT QUESTIONS ONE OF HER NEW MEDICATIONS AND ASKS IF THIS IS A POSSIBILITY FOR HER ITCHING. WILL CONTINUE TO OBSERVE AND DISCUSS THIS SITUATION WITH THE
--- NOTE | 2020-01-05 18:23 | NUR ---
PATIENT HAS BEEN SITTING IN DAYROOM WITH LEGS ELEVATED. SLIGHT EDEMA NOTED TO BLE. PATIENT COMMINICATING WELL WITH OTHER PEERS. DENIES NEEDS AT THIS TIME.
[2020-01-05 19:17] VITALS: BP 98/59
--- NOTE | 2020-01-06 05:01 | NUR ---
Assumed care of pt @ 1900. Pt calm et cooperative this shift with pleasant demeanor. Took medications whole without difficulty. Still c/o itching on rash on torso et back of neck. Last dose of Benadryl given at 2315. Ambulates the halls ad lux with steady gait. VSWNL. Health assessment with no abnormalities other than previously noted. Denies SI/HI. Currently restin in bed with eyes closed. Will continue to monitor per protocol.
[2020-01-06 07:30] VITALS: BP 112/82
[2020-01-06 12:49] VITALS: BP 112/82
--- NOTE | 2020-01-06 13:05 | NUR ---
ASSUMED CARE AT 0700 THIS MORNING. PT. UP, DRESSED AND ON THE UNIT. SHE DOES CONTINUE TO C/O ITCHING TO AREA ON BACK OF NECK AND ON LEFT ARM. PT. HAS SEVERAL ROUND, HOLLOW, FLAT, REDDENED AREAS. QIAN Cifuentes WAS SHOWN THESE AREAS. HE REQUESTED THAT A DERMATOLOGY CONSULT BE PLACED. A CONSULT FOR DR. MK RIVER WAS PLACED. HE CALLED BACK TO THE UNIT AND STATED HE WOULD SEE THE PATIENT TOMORROW. PT. WAS INFORMED OF THIS. PT. TOOK HER MEDICATIONS WITHOUT DIFFICULTY. SHE HAD A BRIGHT AFFECT AND CHEERFUL MOOD THIS MORNING. DENIES SI/HI. LUNGS CTA, ABD SOFT. SHE C/O NO BM TIMES 4 DAYS. QIAN Cifuentes STATED HE WOULD ORDER HER SOMETHING FOR THIS. SHE IS AMBULATORY, WALKING ABOU THE UNIT.
--- NOTE | 2020-01-06 16:13 | NUR ---
SW completed 1:1 with patient in lieu of group due to COVID-19 restrictions. Patient was pleasant and engaged. She talked about times when her sons were younger.
[2020-01-06 19:38] VITALS: BP 115/75
--- NOTE | 2020-01-07 05:04 | NUR ---
ASSESSMENT: CHIEF COMPLAINT WAS THE ITCHING OF THE RED BUMPS THAT HAD FORMED ON UPPER TORSO, NECK AND ARMS. HYDROCORTISONE CREAM WAS APPLIED WHEN SHORTLY AFTERWARDS PT STATE THAT THE CREAM WAS BURNING AND THAT SHE'D HAVE TO WASH IT OFF. LATER PT REQUESTED TO HAVE A PO BENEDRYL. Quinn MATTHEW ORDERED A ONE TIME DOSE OF BENEDRYL, SOON PT WAS ASLEEP AND LOUDLY SNORING. VSS, AFEBRILE. UP AD MEDARDO. SOCIALIZED WELL IN THE DAY ROOM THIS EVENING. POSSIBLE DC TO HOME TODAY. SLOW PROGRESS TOWARDS DC GOALS, WILL CONTINUE TO MONITOR.
[2020-01-07 08:00] VITALS: BP 108/79
--- NOTE | 2020-01-07 09:13 | NUR ---
PT UP IN DINING ROOM. PT AWARE OF DISCHARGE TODAY. PT LUNGS CLEAR. PT STILL HAS COMPLAINTS OF RASH TO TORSO AND NECK. PT TOOK MEDS WITHOUT ANY ISSUES.
[2020-01-07 09:15] VITALS: BP 108/79
[2020-01-07] MEDS ORDERED: MACROBID 100 M100 M1 PO (09:35)
[2020-01-07] MEDS ORDERED: PT HOME MEDICATION MISCELL (09:36)
--- NOTE | 2020-01-07 10:48 | NUR ---
YAQUELIN scheduled patient discharge transportation with [facility] for 11:30 am pick at the Main entrance [address] Scheduled psychiatry appt with Dr. Casey for 01/14 @ 1pm. Therapy appointment scheduled with the [facility] 01/23 @ 11:30 am via telepsych. Information provided to patient.
--- NOTE | 2020-01-07 12:00 | NUR ---
PT LEFT VIA AMBULATION TO AUNT'S CAR. PT VERBALY UNDERSTOOD D/C ORDERS. PT WAS GIVEN HOME MEDS AND ALSO BELONGINGS.
--- NOTE | 2020-01-07 12:20 | NUR ---
YAQUELIN informed patient a taxi was waiting to take her home for discharge. She informed SW she called her aunt who is enroute to pick her up. YAQUELIN called [employer] and cancelled the trip.
--- NOTE | 2020-01-07 15:32 | NUR ---
SW faxed discharge summary, med list and face sheet to the [facility].
--- NOTE | 2020-01-08 22:52 | D ---
[facility] [place] [address] DISCHARGE SUMMARY Name: SHAHEEN RODAS Room #: 520B-B DIS IN M.R.#: [id number] Admission: 01/02/20 Attend Phys: Joseph Grier DO Discharge: 01/07/20 Date of : 60 Report #: [id number] THIS REPORT FOR: cc: JOSÉ MIGUEL - Family physician unknown FAM - Family physician unknown Joseph Grier DO ~ THIS REPORT FOR: //name// CC: Joseph VALDEZ unknown DATE OF SERVICE: 01/07/2020 INPATIENT PSYCHIATRIC DISCHARGE SUMMARY ATTENDING PSYCHIATRIST: Joseph Grier DO SOLAR SALES ASSESSOR: Joseph Lyles MD DISCHARGE DIAGNOSES: Unspecified depression and 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 Medical comorbidities include urinary tract infection. She got 6 more doses of Macrobid prescribed at discharge. Coronary artery disease, status post CABG. She has a contact dermatitis. Apparently a ship erector was consulted this weekend and he called the unit today and explained he could not see the patient prior to discharge. Therefore, the patient is asked to see her primary care physician for outpatient Dermatology referral. 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 Additional information is as follows. Her diet is heart healthy. ACTIVITY LEVEL: As tolerated. No alcohol. No illicit drugs. MEDICATIONS: She has Macrobid 100 mg twice daily for 5 more doses. She has a number of home medications. Atorvastatin 80 mg p.o. daily for hyperlipidemia, Plavix 75 mg oral daily for coronary artery disease prevention, Zetia 1 tablet oral daily for hypertriglyceridemia, gabapentin 300 mg 3 times a day for her mood stabilization and convulsions, latanoprost ophthalmic drops at bedtime reportedly for glaucoma, pantoprazole 40 mg oral twice per day for GERD, prednisone 5 mg oral daily and at this point it sounds like more adrenal insufficiency, primidone 50 mg oral 4 times a day for tremor, propranolol 10 mg oral 3 times per day for tremor, tramadol 50 mg oral every 6 hours for pain and venlafaxine 75 mg oral twice daily for depression. It should be noted that on and 01/01/2020, she had a video EEG admission there, where she was diagnosed with non-epileptiform seizures. [address] [address] DISCHARGE SUMMARY Name: SHAHEEN RODAS Room #: 520B-B [facility] IN M.R.#: [id number] Admission: 01/02/20 Attend Phys: Joseph Grier DO Discharge: 01/07/20 Date of : 60 Report #: [id number] The patient sees multiple specialists at the [facility] including Neurology there. She was brought to ED by EMS reportedly due to tongue swelling. She got medication by EMS apparently as IM Benadryl. Apparently, she had numerous studies at her [facility] admission and again things were essentially at baseline and non-epileptiform in nature. Interestingly, she was seen at [facility] in 08/23/2019 for similar episode. She was admitted to rule out stroke and discharged on 08/28/2019. HOSPITAL COURSE: The patient was admitted to Geriatric Psychiatry Unit. Essentially, the evidence of the admission was largely supportive. We did have telephonic conferences with her son, Bob. The patient is pretty much to the point where she needed to get her health care coordinated and take care of herself in her independent living arrangement. I was clear with her and her son if there are further episodes of her being admitted to the Geriatric Psychiatry Unit, I would definitely move towards placement in a long-term care facility. The patient at present is definitely not wishing that placement in a snf nature. Further discussed with the patient and her son that she is on several medications, it was advised for long-term use when someone is entering in her 60s. The patient was in stable condition at time of discharge. VITAL SIGNS: Temperature 37.2, pulse 74, respirations 15, BP 108/79, O2 sat 97%. Her urinalysis did culture out Proteus mirabilis. Other laboratories from 01/02/2020, CBC grossly normal. Chemistries again normal. GFR 78. The only abnormality is slightly low albumin at 3.3 Alk phos is low at 39, ALT 16. She had no elevation of her troponin. She was positive for benzos, barbiturates, did admit to take Klonopin, did prescribe Klonopin 0.5 mg 3 times a day during admission, but I am not going to prescribe this at discharge as she reportedly was prescribed this by outpatient providers. She got scheduled psychiatry appointment with Dr. Casey for 01/15/2020 at 1:00 p.m. Therapy appointment at [facility] 11:30 a.m. via telepsych. I am actually not sure when she has her next neurology appointment at as we did not schedule that before, but is encouraged to follow up in the next month there. VITAL SIGNS: Temperature 37.0, pulse 94, respirations 16, BP 108/79, O2 sat 97%. MUSCULOSKELETAL: Normal gait and station. MENTAL STATUS EXAMINATION: This is a well-developed, fairly nourished black female, appearing stated age. Attention fair. Concentration fair. Speech is normal, rate, rhythm, tone. Thought process is linear and goal oriented. Thought content focused on discharge. No psychomotor agitation. No psychomotor retardation. No suicidal or homicidal ideations. Denied helplessness, hopelessness. No auditory, visual, or tactile hallucinations. Memory not [facility] [address] [place] [address] DISCHARGE SUMMARY Name: SHAHEEN RODAS Room #: 520B-B DIS IN M.R.#: [id number] Admission: 01/02/20 Attend Phys: Joseph Grier DO Discharge: 01/07/20 Date of : 60 Report #: [id number] formally tested. Insight is limited. Judgment is fair to limited. Fund of knowledge, no greater than average. PROGNOSIS: For this patient is guarded given number of recurrent medical problems, at least 3 hospitalizations since August of this year. <ELECTRONICALLY SIGNED> By: Joseph Grier DO 01/08/20 [id number] Joseph Grier DO /nt
== END 2020-01-07 12:45 | disposition home or self-care (01) | DRG 881 ==
LOC: ER 10:09 → EROBS 17:26 → SBH 17:26
PROVIDERS: Emergency Medicine; ADMIT Psychiatry & Neurology Psychiatry
DX: F32.9 Major depressive disorder, single episode, unspecified (principal); I69.354 Hemiplegia and hemiparesis following cerebral infarction affecting left non-dominant side; N39.0 Urinary tract infection, site not specified; G25.9 Extrapyramidal and movement disorder, unspecified; R29.90 Unspecified symptoms and signs involving the nervous system; L93.0 Discoid lupus erythematosus; I25.10 Atherosclerotic heart disease of native coronary artery without angina pectoris; E78.5 Hyperlipidemia, unspecified; L25.9 Unspecified contact dermatitis, unspecified cause; G40.909 Epilepsy, unspecified, not intractable, without status epilepticus; F22 Delusional disorders; K31.84 Gastroparesis; Z95.1 Presence of aortocoronary bypass graft; Z90.710 Acquired absence of both cervix and uterus; Z79.899 Other long term (current) drug therapy; Z88.1 Allergy status to other antibiotic agents; Z88.5 Allergy status to narcotic agent; Z88.2 Allergy status to sulfonamides; Z88.8 Allergy status to other drugs, medicaments and biological substances; Z82.49 Family history of ischemic heart disease and other diseases of the circulatory system; Z83.3 Family history of diabetes mellitus; Z82.3 Family history of stroke; Z80.9 Family history of malignant neoplasm, unspecified; Z81.8 Family history of other mental and behavioral disorders; Z82.61 Family history of arthritis; E03.9 Hypothyroidism, unspecified
CPT/HCPCS: 10880

== ENCOUNTER 2020-10-07 15:23 | Emergency (ER) | payer OTHER ==
[~2020-10-07] VITALS: Ht 165.1 cm; Wt 77.1 kg
[~2020-10-07 15:23] MED LIST changes: +CALCIUM 600 +1 EAC2 PO; +MACROBID 100 M100 M1 PO; +PT HOME MEDICATION MISCELL
[2020-10-07 17:06] LABS: ABSOLUTE NEUTROPHILS 4.8 thou/uL (1.4-8.2); BASOPHILS 0.4 % (0.0-2.0); HEMATOCRIT 41.1 % (37.0-47.0); HEMOGLOBIN 13.1 gm/dL (12.0-15.0); LYMPHOCYTES 23.7 % (24.0-44.0); MCH 32.2 pg (26.0-34.0); MCV 100.8 fL (80.0-100.0); MONOCYTES 4.5 % (1.0-8.0); PLATELET COUNT 262 thou/uL (150-400); POLYS 70.4 % (36.0-66.0); RBC 4.08 mil/uL (4.20-5.00); RDW 13.4 % (10.5-14.5); WBC 6.8 thou/uL (4.0-11.0)
[2020-10-07 17:12] LABS: CALCIUM 9.3 mg/dL (8.5-10.1); POTASSIUM 4.1 mmol/L (3.5-5.1)
[2020-10-07 17:18] LABS: ALBUMIN 3.4 g/dL (3.4-5.0); TOTAL BILIRUBIN 0.3 mg/dL (0.2-1.0); TOTAL PROTEIN 6.9 g/dL (6.4-8.2)
[2020-10-07 17:41] LABS: URINE BILIRUBIN NEGATIVE (Negative); URINE BLOOD NEGATIVE (Negative); URINE CLARITY CLEAR; URINE COLOR YELLOW; URINE GLUCOSE-RANDOM* NEGATIVE (Negative); URINE KETONES NEGATIVE (Negative); URINE LEUKOCYTES-REFLEX TRACE (Negative); URINE NITRITE-REFLEX NEGATIVE (Negative); URINE PROTEIN (DIPSTICK) NEGATIVE (Negative); URINE UROBILINOGEN 0.2 E.U./dl (0.2-1.0)
[2020-10-07 19:16] VITALS: BP 111/63
--- NOTE | 2020-10-08 07:04 | EKG ---
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: MARIAN WYLIE : 1960 Requested By: Aaron Jaquez Order Number: [id number] MD: Jorge Arshad Measurements Intervals [place] Rate: 80 P: -5 DC: 128 QRS: -14 QRSD: 78 T: 140 QT: 531 QTc: 613 Interpretive Statements Sinus rhythm Abnormal R-wave progression, early transition LVH with secondary repolarization abnormality Prolonged QT interval Baseline wander in lead(s) V3,V4 Compared to ECG 01/02/2020 10:54:42 Prolonged QT interval now present Electronically Signed On 10-08-2020 7:04:47 CARPET CLEANING TECHNICIAN by Jorge Arshad [email or web address] <ELECTRONICALLY SIGNED> By: Jorge Arshad MD, [facility] 10/08/20 [id number] Jorge Arshad MD, [facility] /EPI
== END 2020-10-07 19:31 | disposition home or self-care (01) ==
LOC: ER 15:23
PROVIDERS: Emergency Medicine
DX: R56.9 Unspecified convulsions (principal); I25.10 Atherosclerotic heart disease of native coronary artery without angina pectoris; Z95.1 Presence of aortocoronary bypass graft; Z79.01 Long term (current) use of anticoagulants; Z79.899 Other long term (current) drug therapy; Z88.2 Allergy status to sulfonamides; Z88.1 Allergy status to other antibiotic agents; Z88.6 Allergy status to analgesic agent; Z88.8 Allergy status to other drugs, medicaments and biological substances; Z88.5 Allergy status to narcotic agent